=== PATIENT | female | born 1970 | race African-American/Black ===

== ENCOUNTER 2018-03-23 15:45 | Emergency (ER) | payer BC ==
[~2018-03-23] VITALS: Ht 165.1 cm; Wt 63.5 kg
[~2018-03-23 15:45] MED LIST: ALBUTEROL SULF8.5 GM INH; AZITHROMYCIN250 MG ORAL; GUAIFENESIN-CO118 M1 ORAL; IBUPROFEN600 MG ORAL; NYQUIL D COLD295 M1 PO; TESSALON PERLE100 MG ORAL; ZITHROMAX250 MG ORAL
[2018-03-23 16:00] VITALS: BP 143/74
--- NOTE | 2018-03-23 16:00 | NUR ---
ED Nurse Note: A/OX4. AMBULATED IN TO ER DUE TO ABDOMINAL PAIN X2 WEEKS. DENIES PAIN AT THIS TIME. DENIES N/V AND NO FEVER.
[2018-03-23 17:27] LABS: APPEARANCE,URINE CLEAR; BILIRUBIN, URINE NEGATIVE (NEGATIVE); COLOR,URINE PALE YELLOW; GLUCOSE, URINE (UA) NEGATIVE (NEGATIVE); KETONES,URINE NEGATIVE (NEGATIVE); LEUKOCYTE ESTERASE ,URINE 2+ (NEGATIVE); NITRITE,URINE NEGATIVE (NEGATIVE); PH,URINE 5 (4.5-8.0); PROTEIN,URINE NEGATIVE (NEGATIVE); UROBILINOGEN,URINE NORMAL MG/DL (0.0-1.0)
[2018-03-23] MEDS ORDERED: BILTRICIDE600 MG PO (18:13)
--- NOTE | 2018-03-23 18:14 | Emergency Room Report ---
History of Present Illness General Chief Complaint: Abdominal Pain Source: Patient Present Illness HPI 47-year-old female patient presents the ER complaining of suprapubic abdominal pain times 2 weeks. Reports concern for possible warm infection. Reports in her culture that she eats a lot of "raw meat" denies a history of tapeworm infection. Reports she is requesting the medication to be prescribed to her. Spoke with patient's family member on the phone who confirmed this history. Reports pain symptoms have improved currently. Denies vomiting or diarrhea. Reports able to pass flatus. Denies fever, chest pain or shortness of breath. Patient resting comfortably currently in the ER. Denies dysuria, hematuria. Denies flank pain. Denies seeing worms in stool currently. Allergies: Coded Allergies: No Known Allergies (Unverified , 01/16/13) Patient History Past Medical History: see triage record Last Menstrual Period: none Now: No Reviewed Nursing Documentation: PMH: Agreed; PSxH: Agreed Nursing Documentation-PMH Past Medical History: No Stated History Review of Systems All Other Systems: negative except mentioned in HPI Physical Exam Vital Signs Date Time Temp Pulse Resp B/P (MAP) Pulse Ox O2 Delivery O2 Flow Rate FiO2 03/23/18 15:54 98.8 97 18 143/74 98 Room Air Sp02 EP Interpretation: reviewed, normal General Appearance: well appearing, no apparent distress, alert, GCS 15, non- toxic Head: normocephalic, atraumatic Eyes: bilateral eye normal inspection, bilateral eye PERRL ENT: hearing grossly normal, normal pharynx, no angioedema, normal voice, uvula midline, moist mucus membranes Neck: full range of motion Respiratory: lungs clear, normal breath sounds, no rhonchi, no respiratory distress, no accessory muscle use, no wheezing, speaking full sentences Cardiovascular #1: regular rate, rhythm, no edema Gastrointestinal: non tender, soft, no mass, non-distended, no guarding, no rebound Musculoskeletal: back normal, digits/nails normal, gait/station normal, normal range of motion, non-tender Psychiatric: mood/affect normal Skin: no rash Medical Decision Making PA Attestation Dr. Stevenson is my supervising Physician whom patient management has been discussed with. Diagnostic Impression: Primary Impression: Suprapubic abdominal pain ER Course Pt. presents to the ED c/o suprapubic pain times 2 weeks. Ddx considered but are not limited to UTI, SBO, shoulder while tapering infection, and gastritis. Able to pass flatus, no abdominal tenderness palpation, low suspicion for SBO. Vital signs: are WNL, pt. is afebrile ER COURSE: UA unremarkable, no nitrites, low suspicion for UTI, patient is symptomatic, does not require antibiotics at this time. Informed patient needs to follow-up with primary care provider for stool O&P testing. Will provide patient with praziquantel to treat for tapeworm infection. ER precautions given. Discussed care with Dr. Stevenson, agrees with assessment and treatment plan. DISCHARGE: At this time pt is stable for d/c to home. Patient is resting comfortably, in no acute distress, nontoxic appearing, talking without difficulty. Patient to take medications as instructed Will provide with patient care instructions and any necessary prescriptions. Care plan and follow-up instructions provided. Patient instructed to follow-up with primary care provider in 3 - 5 days. Patient questions asked and answered. Patient reports understanding and agreement to treatment plan. ER precautions given. Patient instructed to return to ER immediately for any new or worsening of symptoms including but not limited to increasing SOB, persistent fever, chest pain, intractable vomiting. - Please note that this Emergency Department Report was dictated using [employer]lickbra[employer] tender technology software, occasionally this can lead to erroneous entry secondary to interpretation by the dictation equipment. Labs Test 03/23/18 16:55 Urine Color Pale yellow Urine Appearance Clear Urine pH 5 (4.5-8.0) Urine Specific [place] 1.020 (1.005-1.035) Urine Protein Negative (NEGATIVE) Urine Glucose (UA) Negative (NEGATIVE) Urine Ketones Negative (NEGATIVE) Urine Blood 2+ (NEGATIVE) Urine Nitrite Negative (NEGATIVE) Urine Bilirubin Negative (NEGATIVE) Urine Urobilinogen Normal MG/DL (0.0-1.0) Urine Leukocyte Esterase 2+ (NEGATIVE) Urine RBC 0-2 /HPF (0 - 2) Urine WBC 2-4 /HPF (0 - 2) Urine Squamous Epithelial Cells Few /LPF (NONE/OCC) Urine Bacteria Few /HPF (NONE) Urine HCG, Qualitative Negative (NEGATIVE) Last Vital Signs Date Time Temp Pulse Resp B/P (MAP) Pulse Ox O2 Delivery O2 Flow Rate FiO2 03/23/18 16:00 98.8 97 18 143/74 98 Room Air Disposition: HOME, SELF-CARE Condition: Stable Scripts Praziquantel (BILTRICIDE) 600 Mg Tablet 600 MG PO ONCE for 1 Day, #1 TAB Prov: Joby Galan 03/23/18 Patient Instructions: Abdominal Pain, Adult, Tapeworm Infection Additional Instructions: Followup with primary care provider in 3 -5 days. Needs outpatient stool O&P performed. Discussed referral to infectious disease and GI specialist. Take medications as directed. Patient questions asked and answered. ER precautions given, patient instructed to return to ER immediately for any new or worsening of symptoms. Joby Galan Mar 23, 2018 18:13
[2018-03-23 18:19] VITALS: BP 143/74
--- NOTE | 2018-03-23 18:20 | NUR ---
ED Nurse Note: A/Ox4. Pt is cleared by WOODROW Kelsey. DC instruction and prescriptions given, pt verbalized understanding. IV/ID wristband removed. All belongings taken by pt. Denies pain at this time. Pt ambulated out of ER with steady gait.
== END 2018-03-23 18:20 | disposition home or self-care (01) ==
LOC: EMR 16:30
DX: R10.30 Lower abdominal pain, unspecified (principal)
CPT/HCPCS: 81003; 81025; 99283